=== PATIENT | female | born 2000 | race Two or more races ===

== ENCOUNTER 2021-01-27 09:58 | Emergency (ER) | payer BC, MEDICAID, OTHER, SELFPAY ==
[~2021-01-27] VITALS: Ht 170.2 cm; Wt 59.0 kg
[2021-01-27] MEDS ORDERED: SUMA25TA3 PO (10:25)
[2021-01-27] MEDS ORDERED: ONDA4TAB7 PO (10:25)
--- NOTE | 2021-01-27 10:36 | NUR ---
SAME TRIAGE NOTE. PT REPORTS CHRONIC HIP PAIN SINCE LAST YEAR; INITIALLY ON L SIDE BUT NOW BILATERAL. STATES SHE GOT A REFERRAL FOR A HIP SPECIALIST BUT "THEY HAVEN'T CALLED ME YET". REPORTS PAIN TO HER HIPS HAS GOTTEN REALLY BAD SINCE NOVEMBER. TAKES IBUPROFEN PRN.
[2021-01-27] MEDS ORDERED: KETOROLAC 30 MG/1 ML ONE (10:59)
[2021-01-27] MEDS ORDERED: KETOROLAC 30 MG/1 ML IM ONE (11:00)
--- NOTE | 2021-01-27 11:01 | NUR ---
PT'S MOTHER JOE CALLED, CONCERNED THAT PT HASN'T RECEIVED PAIN MEDICATION AND THAT PT DOESN'T EXPRESS WHEN SHE'S IN PAIN D/T HX TBI. ERP NOTIFIED, ORDER RC'VD FOR TORADOL. WENT IN TO SPEAK WITH PT, PT DECLINING PAIN MEDICATION AT THIS TIME. STATES SHE WILL CALL IF SHE DECIDES SHE WANTS PAIN MEDS.
--- NOTE | 2021-01-27 11:22 | NUR ---
PT CALLED TO REQUEST PAIN MEDICATION. MEDICATED PER ORDERS. BLANKET PROVIDED. NO OTHER NEEDS.
[2021-01-27 11:23] VITALS: BP 118/64
--- NOTE | 2021-01-27 11:56 | NUR ---
ERP AT FOR RECHECK.
--- NOTE | 2021-01-27 12:17 | NUR ---
D/C INSTRUCTIONS, MEDS & F/U APPT RV'WD WITH PT, SHE VERBALIZES UNDERSTANDING. RX GIVEN X1. WORK NOTE PROVIDED. PT AMBULATED OUT OF ED WITH BOYFRIEND WITHOUT DIFFICULTY.
== END 2021-01-27 12:18 | disposition home or self-care (01) ==
LOC: ED 11:35
DX: S76.011A Strain of muscle, fascia and tendon of right hip, initial encounter (principal); M76.9 Unspecified enthesopathy, lower limb, excluding foot; X58.XXXA Exposure to other specified factors, initial encounter; Y93.89 Activity, other specified; Y92.89 Other specified places as the place of occurrence of the external cause; Y99.8 Other external cause status
CPT/HCPCS: 73523; 96372; 99283; J1885